=== PATIENT | male | born 1980 | race American Indian/Alaskan Native ===

== ENCOUNTER 2017-02-08 21:41 | Emergency (ER) | payer SELFPAY ==
[2017-02-08 23:48] VITALS: BP 119/75
[2017-02-09] MEDS ORDERED: MOTRIN PO ONE (03:56)
[2017-02-09] MEDS ORDERED: ZOVIRAX PO ONE (03:56)
--- NOTE | 2017-02-09 03:59 | Emergency Department Report ---
HPI - General Chief Complaint: Skin Rash Time Seen by Provider: 02/09/17 03:54 - HPI HPI: This is a 36-year-old male presents to ED complaining of rash to the left hip area times couple of days. Patient states rash is itchy but describes rash as a burning pain sensation that is along the sides of his hip. He describes the rash as raised bumps scattered across his hip He denies fevers/chills/nausea/vomiting/abdominal pain/shortness of breath or any other problems ED Past Medical Hx - Past Medical History Previous Medical History?: Yes Additional medical history: shingles, frequent ear infections - Surgical History Past Surgical History?: No - Social History Smoking Status: Never Smoker Substance Use Type: Alcohol - Medications Home Medications: Home Medications Medication Instructions Recorded Confirmed Last Taken Type Acyclovir [Zovirax Tab] 800 mg PO QID #35 tablet 02/09/17 Unknown Rx Ibuprofen [Motrin 800 MG tab] 800 mg PO ONCE #40 tablet 02/09/17 Unknown Rx ED Review of Systems ROS: Stated complaint: BODY RASH/EARACHE/STIFF NECK Other details as noted in HPI Constitutional: denies: chills, fever Eyes: denies: eye pain, eye discharge, vision change ENT: denies: ear pain, throat pain Respiratory: denies: cough, shortness of breath, wheezing Cardiovascular: denies: chest pain, palpitations Endocrine: no symptoms reported Gastrointestinal: denies: abdominal pain, nausea, diarrhea Genitourinary: denies: urgency, dysuria Musculoskeletal: denies: back pain, joint swelling, arthralgia Skin: rash, lesions Neurological: denies: headache, weakness, paresthesias Psychiatric: denies: anxiety, depression Hematological/Lymphatic: denies: easy bleeding, easy bruising Physical Exam - Physical Exam Vital Signs: Vital Signs 02/08/17 23:41 Temperature 98.4 F Pulse Rate 102 H Respiratory 18 Rate Blood Pressure 119/75 O2 Sat by Pulse 99 Oximetry Physical Exam: GENERAL: Alert and oriented x3, no apparent distress, Normal Gait, atraumatic. HEAD: Head is normocephalic and a-traumatic. NECK: Supple. Non edematous, No carotid bruits. No lymphadenopathy or thyromegaly. No C-spine tenderness LUNGS: Symetrical with respiration, No wheezing, no rales or crackles, CTAB. HEART: S1, S2 present, regular rate and rhythm without murmur, no rubs, no gallops. Non tender to palpation PSYCHIATRIC: Mood is congruent with affect, denies suicidal or homicidal ideations. SKIN: Warm and dry, erythematous ,generalized, grouped,vesicular/ raised lesions spread along the dermatome of the groin and hip, No ulceration or induration present. ED Course Vital Signs 02/08/17 23:41 Temperature 98.4 F Pulse Rate 102 H Respiratory 18 Rate Blood Pressure 119/75 O2 Sat by Pulse 99 Oximetry ED Medical Decision Making - Medical Decision Making 36-year-old male presents with a herpes zoster rash ED course: Patient received Motrin and specifically. ED Discussed to discharge home medication of the same Discussed with patient to following the instructions as given Discussed to not itch rash as to prevent spread. Discussed follow-up with primary care physician. Vital signs are normal patient is in no acute distress. Patient has no neurological deficit Critical care attestation.: If time is entered above; I have spent that time in minutes in the direct care of this critically ill patient, excluding procedure time. ED Disposition Clinical Impression: Herpes zoster Qualifiers: Herpes zoster complications: without complications Qualified Code(s): B02.9 - Zoster without complications Shingles rash Qualifiers: Herpes zoster complications: without complications Qualified Code(s): B02.9 - Zoster without complications Disposition: DC-01 TO HOME OR SELFCARE Is pt being admited?: No Does the pt Need Aspirin: No Condition: Stable Instructions: Herpes Zoster (ED) Prescriptions: Acyclovir [Zovirax Tab] 800 mg PO QID #35 tablet Ibuprofen [Motrin 800 MG tab] 800 mg PO ONCE #40 tablet Referrals: [facility] [Outside] - 3-5 Days [facility] [Outside] - 3-5 Days [facility] [Outside] - 3-5 Days Forms: Work/School Release Form(ED) Time of Disposition: 04:01
== END 2017-02-09 05:04 | disposition home or self-care (01) ==
LOC: ED 21:41
DX: B02.9 Zoster without complications (principal)
CPT/HCPCS: 99282